=== PATIENT | male | born 1960 | race Caucasian/White ===

== ENCOUNTER 2024-08-29 12:30 | Outpatient (CLI) | payer MEDICARE, SELFPAY ==
--- NOTE | ~2024-08-29 | XR_ITS ---
HISTORY: T-SPINE PAIN AND CHEST PAIN COMPARISON: None TECHNIQUE: 3 views of the bilateral ribs were performed along with a PA and lateral view of the chest FINDINGS: No acute displaced fracture is appreciated. Bone mineralization is age-appropriate. The cardiomediastinal silhouette is unremarkable. The lungs are clear. IMPRESSION: No acute displaced fracture. The lungs are clear. Reviewed, dictated and finalized at location A.
--- NOTE | ~2024-08-29 | XR_ITS ---
HISTORY: T-SPINE PAIN AND CHEST PAIN COMPARISON: None TECHNIQUE: 3 views thoracic spine were performed FINDINGS: No acute compression fracture is present. Bone mineralization is age-appropriate. No significant degenerative disease. IMPRESSION: No acute compression fracture, as detailed above Reviewed, dictated and finalized at location A.
== END 2024-08-29 12:31 | disposition home or self-care (01) ==
PROVIDERS: PCP Family Medicine; Visit Provider Family Medicine
DX: M54.6 Pain in thoracic spine (principal); R07.9 Chest pain, unspecified
CPT/HCPCS: 71046; 71110; 72072

== ENCOUNTER 2024-09-26 08:00 | Outpatient (CLI) | payer OTHER, SELFPAY ==
--- NOTE | ~2024-09-26 | US_ITS ---
Abdominal Sonogram: Real-time sonographic imaging of the abdomen was performed. Clinical History: Abdominal pain Findings: The liver appears echogenic, with no evidence of mass lesion or bile duct dilatation. Main portal vein demonstrates normal direction of flow. The spleen is normal in size without evidence of focal lesion. The gallbladder is well distended, and appears normal with no evidence of gallstone or wall thickening. The common bile duct measures 4 mm. The visualized pancreas, aorta, and IVC are un remarkable. The right kidney measures 12.2 cm in length and the left kidney measures 12.1 cm. There is no hydronephrosis or renal calculus. Impression: Diffuse fatty infiltration of the liver. Reviewed, dictated and finalized at location . Impression: Diffuse fatty infiltration of the liver.
== END 2024-09-26 08:01 | disposition home or self-care (01) ==
LOC: MICIMG 08:01
PROVIDERS: PCP Family Medicine; Visit Provider Physician Assistant
DX: K76.0 Fatty (change of) liver, not elsewhere classified (principal); M54.6 Pain in thoracic spine; R07.9 Chest pain, unspecified
CPT/HCPCS: 76700